=== PATIENT | female | born 2000 | race African-American/Black ===

== ENCOUNTER 2021-10-11 21:55 | Emergency (ER) | payer MEDICAID, SELFPAY ==
--- NOTE | 2021-10-11 22:14 | ED.PSYCH ---
HPI - Psych General Chief Complaint: Recheck/Abnormal Lab/Rx Stated Complaint: suicidal thoughts Time Seen by Provider: 10/11/21 22:01 Source: patient Mode of arrival: ambulatory Limitations: no limitations History of Present Illness HPI Narrative: 19-year-old female presents emergency room secondary to some anxiety and depression. She got longstanding history of some psychiatric illnesses that she is been treated for. However she is now out of the foster care system and living on her own. She has been out of her medications for several months. She has been stealing other peoples medications and taking them try to get some relief. She just feeling extremely anxious as well as depressed at times. She does have some anger but she has not threatened anyone. She denies any suicidal homicidal thoughts. She states she just needs to get back on her routine medications so she can get stabilized and feeling better. She is in the process of trying to find a job and lives in an apartment with someone else. Related Data Allergies Allergy/AdvReac Type Severity Reaction Status Date / Time No Known Allergies Allergy Verified 10/12/21 01:27 Review of Systems Review of Systems: CONSTITUTIONAL: Denies fever, chills, or sweats. EYES: Denies visual changes, redness, or discharge. ENT: Denies rhinorrhea, congestion, sore throat, or otalgia. CARDIOVASCULAR: Denies chest pain, palpitations, or edema. RESPIRATORY: Denies cough or dyspnea. GASTROINTESTINAL: Denies abdominal pain, nausea, vomiting, or diarrhea. GENITOURINARY: Denies dysuria or hematuria. SKIN: Denies rash or itching. MUSCULOSKELETAL: Denies back pain, joint pain, or myalgia. NEUROLOGIC: Denies headache, numbness, or weakness. PSYCHIATRIC: Anxiety and depression Exam Narrative: APPEARANCE: Well appearing, no pain or distress, well-nourished. Head normocephalic and atraumatic. EYES: PERRLA/EOMI, conjunctivae very clear. NOSE: Normal with no drainage EARS:TMS clear Angelita Schneider, with good light reflex. THROAT: Pharynx clear, no exudate. NECK: Supple. No adenopathy, no masses. RESPIRATORY: Airway patent, respirations nonlabored. Clear to auscultation bilaterally, no rales, rhonchi, wheezing. CARDIOVASCULAR: Regular rate and rhythm without murmurs, rubs, or gallops. ABDOMINAL: Soft, nontender, nondistended, no hepatosplenomegaly Musculoskeletal: Moves all extremities. Strength/ROM intact, No edema, No calf tenderness. NEURO: Alert. Cranial nerves II through XII intact. Normal gait. Good coordination. Nonfocal examination. SKIN:: Warm, dry. Normal Color PSYCHIATRIC: Normal affect/mood, normal interaction Course Vital Signs Vital signs: Vital Signs Temperature 98.4 F 10/11/21 22:28 Pulse Rate 76 10/11/21 22:28 Respiratory Rate 16 10/11/21 22:28 Blood Pressure 121/78 10/11/21 22:28 Pulse Oximetry 99 10/11/21 22:28 Temperature 98.4 F 10/11/21 22:28 Pulse Rate 76 10/11/21 22:28 Respiratory Rate 16 10/11/21 22:28 Blood Pressure 121/78 10/11/21 22:28 Pulse Oximetry 99 10/11/21 22:28 MDM - Psych MDM Narrative Medical decision making narrative: Patient states she been on 3 different medications to help with her mood disorder and depression. She cannot remember the names of any of them. She is for a couple months. We talked to mental health and they will migraine short outpatient follow-up. I will go ahead and start her on some Zoloft 50 mg a day to see if we can to get control of her symptoms. Patient was advised not to be taking anybody else's medications. Lab Data Attestation: I reviewed the patient's lab results. Labs: Lab Results 10/11/21 Range/Units 23:30 Urine Color Yellow (Yellow) Urine Appearance Clear (Clear) Urine pH 6.0 (5.0-9.0) Ur Specific [place] >= 1.030 (1.001-1.035) Urine Protein Negative (Negative) mg/dL Urine Glucose (UA) Negative (Negative) mg/dL Urine Ketones Negative (Negative) mg/dL Ur Bloo
[2021-10-11 22:28] VITALS: BP 121/78; PULSE 76; RESP 16; TEMP 36.9; O2SAT 99
[2021-10-11 23:37] LABS: Add Urine Microscopic? NO; Appearance Urine Clear (Clear); Bilirubin Urine Negative (Negative); Blood Urine Negative (Negative); Color Urine Yellow (Yellow); Glucose Urine UA Negative (Negative); Ketones Urine Negative (Negative); Leukocyte Esterase Ur Negative LEU/UL (Negative); Nitrate Urine Negative (Negative); Protein Urine Negative (Negative); Specific Grav Ur >= 1.030 (1.001-1.035); Urobilinogen Urine 0.2 mg/dL (<2.0)
[2021-10-11 23:39] LABS: Mucus Urine Rare /lpf; RBC Urine 0-2 /hpf (0-2); Squamous Epithelial Cell Urine Many /hpf (Few)
--- NOTE | 2021-10-12 04:02 | PC.NURSE ---
2221- RN called Crisis and spoke with Jody about pt current situation and if crisis would be able to give outpatient follow up information without having labs drawn due to ERP declaring pt medically cleared. 2230- Return call from Jody at [facility]. staff unable to come to the ER for evaluation due to pt not being SI/ HI or having psychotic break at this time. informed to have pt call [facility] @ [phone] on thursday and they will be able to set up insurance if pt does not have any and follow up psych MD or PCP if needed. requested that ERP give 30days of Rx so that pt has time to get in with psych MD. RN notified ERP Aamir Lawton.
--- NOTE | 2021-10-12 07:23 | PC.NURSE ---
spoke with care cordinator who will come down and give pt bus tokens
== END 2021-10-12 07:26 | disposition home or self-care (01) ==
PROVIDERS: Emergency Provider Emergency Medicine
DX: F33.0 Major depressive disorder, recurrent, mild (principal); F41.9 Anxiety disorder, unspecified; F39 Unspecified mood [affective] disorder
CPT/HCPCS: 81003; 81025; 99283

== ENCOUNTER 2023-12-12 02:42 | Emergency (ER) | payer MEDICARE, BC, MEDICAID, SELFPAY ==
[2023-12-12 02:47] VITALS: BP 121/80; PULSE 95; RESP 17; TEMP 36.2; O2SAT 100
[2023-12-12 02:52] VITALS: PULSE 81
--- NOTE | 2023-12-12 03:18 | ED.GENADULT ---
HPI - General Adult General Chief complaint: Unspecified Stated complaint: lower abd at my scar from a yr ago Time Seen by Provider: 12/12/23 02:46 History of Present Illness HPI narrative: This is a 23-year-old female presenting ED with chief complaint of pain at her site. Earlier today she noticed a small bump on her . This painful to the touch. It is fluctuant. No overlying skin changes. No systemic signs of illness such as fever chills nausea vomiting diarrhea. Related Data Allergies Allergy/AdvReac Type Severity Reaction Status Date / Time No Known Allergies Allergy Verified 12/12/23 02:51 Exam Narrative: APPEARANCE: No apparent distress. Head: atraumatic. EYES: EOMI, NOSE: Atraumatic NECK: Trachea midline RESPIRATORY: No increased rate of breathing CARDIOVASCULAR: RRR, ABDOMINAL: Soft nontender no guarding or rebound. Over the site there is a small area of fluctuance with a clogged pore MUSCULOSKELETAl: No obvious deformities NEURO: Alert. Moving 4/4 extremities SKIN:: Warm, dry. Normal color PSYCHIATRIC: Normal affect Course Vital Signs Vital signs: Vital Signs Temperature 97.2 F L 12/12/23 02:47 Pulse Rate 95 12/12/23 02:47 Respiratory Rate 17 12/12/23 02:47 Blood Pressure 121/80 12/12/23 02:47 Pulse Oximetry 100 12/12/23 02:47 Oxygen Delivery Room Air 12/12/23 02:47 Temperature 97.2 F L 12/12/23 02:47 Pulse Rate 81 12/12/23 02:52 Respiratory Rate 17 12/12/23 02:47 Blood Pressure 121/80 12/12/23 02:47 Pulse Oximetry 100 12/12/23 02:47 Oxygen Delivery Room Air 12/12/23 02:47 Medical Decision Making [facility] Narrative Medical decision making narrative: -Course: 23-year-old female presenting with pain fluctuance on her site. There was a clogged pore site. Slight pressure was apprised the poor released and a small amount of purulent fluid was discharged. Patient's pain improved. Discussed using a scalpel to open up the small abscess further to ensure does not recur in the patient declined. No surrounding cellulitis require antibiotics. Patient discharged with primary care follow-up. -DDX includes but is not limited to: Pimple, boil, abscess -Shared decision making / Disposition: discharged Vital Signs Vital Signs: Vital Signs Temperature 97.2 F L 12/12/23 02:47 Pulse Rate 95 12/12/23 02:47 Respiratory Rate 17 12/12/23 02:47 Blood Pressure 121/80 12/12/23 02:47 Pulse Oximetry 100 12/12/23 02:47 Oxygen Delivery Room Air 12/12/23 02:47 Temperature 97.2 F L 12/12/23 02:47 Pulse Rate 81 12/12/23 02:52 Respiratory Rate 17 12/12/23 02:47 Blood Pressure 121/80 12/12/23 02:47 Pulse Oximetry 100 12/12/23 02:47 Oxygen Delivery Room Air 12/12/23 02:47 Discharge Plan Discharge Clinical Impression: Abscess Patient Disposition: Home, Self-Care Condition: Stable Instructions: Antibiotic Form, Abscess (ED) Additional Instructions: follow-up with your primary care physician or OBGYN. The fluid may recollect. If that happens you can follow up with a doctor for incision and drainage. Return if you develop signs of infection or severe pain. Prescriptions: No Action sertraline [Zoloft] 50 mg tablet 50 mg PO DAILY Qty: 30 0RF Follow-up/Referrals: PHYSICIAN,[facility]PER[facility] [Primary Care Provider] -
[2023-12-12 03:30] VITALS: BP 115/77; PULSE 89; RESP 22; O2SAT 100
== END 2023-12-12 03:32 | disposition home or self-care (01) ==
PROVIDERS: Emergency Provider Emergency Medicine
DX: O86.01 Infection of obstetric surgical wound, superficial incisional site (principal); Z79.899 Other long term (current) drug therapy
CPT/HCPCS: 99284